=== PATIENT | female | born 1960 ===

== ENCOUNTER 2024-01-24 11:06 | Outpatient (CLI) | payer OTHER ==
[~2024-01-24 11:06] MED LIST: GILTUSS COUGH-118 ML PO; KETO10TA2 PO
== END 2024-01-24 11:08 | disposition home or self-care (01) ==
LOC: SONOGRAMA 11:06
PROVIDERS: ATTEND Pathology Anatomic Pathology & Clinical Pathology
DX: D34 Benign neoplasm of thyroid gland (principal); E04.1 Nontoxic single thyroid nodule